=== PATIENT | male | born 1995 | race Caucasian/White ===

== ENCOUNTER → 2020-02-28 17:07 | Outpatient (CLI) | payer SELFPAY ==
[2020-02-28 17:46] LABS: Basophils # 0.1 K/mm3 (0-0.2); Basophils % 0.7 % (0.1-2.0); Eosinophils # 0.4 K/mm3 (0.0-0.4); Eosinophils % 4.5 % (0.1-12.0); Hematocrit 49.5 % (42.0-52.0); Hemoglobin 16.3 g/dL (14.1-18.0); Lymphocytes # 2.8 K/mm3 (0.7-4.5); Mean Corpuscular HGB Conc 32.9 g/dL (31.8-35.4); Mean Corpuscular Hemoglobin 32.2 pg (27.0-31.2); Mean Corpuscular Volume 97.8 fl (80-94); Mean Platelet Volume 7.8 fl (7.4-10.4); Monocytes # 0.5 K/mm3 (0.1-1.0); Monocytes % 5.7 % (1.7-9.3); Neutrophils # 4.6 K/mm3 (1.8-7.8); Platelet Count 256 K/mm3 (142-424); Red Blood Count 5.06 M/mm3 (4.60-6.20); Red Cell Distribution Width 13.2 % (11.5-17.5); White Blood Count 8.3 K/mm3 (4.8-10.8)
[2020-02-28 17:56] LABS: Alanine Aminotransferase 25 U/L (12-78); Albumin Level 4.5 g/dl (3.5-5.0); Albumin/Globulin Ratio 1.5 (1.1-1.8); Alkaline Phosphatase 72 U/L (38-126); Aspartate Amino Transferase 32 U/L (17-59); Bilirubin,Total 0.5 mg/dl (0.2-1.3); Blood Urea Nitrogen 17 mg/dl (9-20); Calcium 9.8 mg/dl (8.4-10.2); Carbon Dioxide 27 mmol/L (22.0-30.0); Chloride 102 mmol/L (98-107); Cholesterol 189 mg/dl (140-200); Estimated Glomerular Filt Rate 75 ml/min (>60); GFR (African American) 91 ML/MIN (>60); Globulin 3.1 g/dL (1.3-3.2); Glucose 92 mg/dl (74-100); HDL Cholesterol 38 mg/dl (40-60); Sodium 138 mmol/L (136-145); Total Protein,Serum 7.6 g/dl (6.3-8.2); Triglycerides 298 mg/dl (30-150); VLDL Cholesterol 60 mg/dL (0-40)
[2020-02-28 18:06] LABS: Direct LDL Cholesterol 111.24 mg/dL (100-129)
[2020-02-28 18:12] LABS: 25-OH Vitamin D, Total 26.8 ng/mL (30-100)
[2020-02-28 18:14] LABS: T4 (Thyroxine) 5.7 ug/dl (5.53-11.0)
[2020-02-28 18:27] LABS: Thyroid Stimulating Hormone 1.39 uIU/mL (0.465-4.68)
[2020-02-28 18:49] LABS: Hemoglobin A1C 5.4 % (4.0-6.0)
== END ==
PROVIDERS: Visit Provider Nurse Practitioner Family
DX: R42 Dizziness and giddiness (principal); R53.1 Weakness; R53.83 Other fatigue; E11.9 Type 2 diabetes mellitus without complications; E55.9 Vitamin D deficiency, unspecified
CPT/HCPCS: 80053; 80061; 82306; 83036; 84436; 84443; 85025

== ENCOUNTER 2022-10-18 19:26 | Emergency (ER) | payer SELFPAY ==
[2022-10-18 19:28] VITALS: BP 144/86; PULSE 102; RESP 33; TEMP 36.8; O2SAT 96; BMI 40.3
[2022-10-18 19:30] VITALS: BMI 45.1
--- NOTE | 2022-10-18 19:31 | ECG_ITS ---
APPROVED REPORT Exam: Resting ECG HR:96 bpm ECG Measurements Heart Rate 96 AXES KS 132 P 32 QRSd 102 QRS 21 QT 326 T 52 QTc 379 Conclusion SINUS RHYTHM NORMAL ECG UNCONFIRMED REPORT Electronically signed by : Sal Roldan MD 10/19/2022 13:59:50
--- NOTE | 2022-10-18 19:31 | XR_ITS ---
PROCEDURE INFORMATION: Exam: XR Chest Exam date and time: 10/18/2022 7:33 PM Age: 27 years old Clinical indication: Pain; Chest pressure; Additional info: Chest pain TECHNIQUE: Imaging protocol: Radiologic exam of the chest. Views: 1 view. COMPARISON: No relevant prior studies available. FINDINGS: Lungs: Unremarkable. No consolidation. Pleural spaces: Unremarkable. No pleural effusion. No pneumothorax. Heart/Mediastinum: Unremarkable. No cardiomegaly. Bones/joints: Unremarkable. IMPRESSION: No acute findings.
[2022-10-18 19:45] LABS: Basophils % 0.1 % (0.1-2.0); Eosinophils # 0.3 K/mm3 (0.0-0.4); Hematocrit 50.5 % (42.0-52.0); Lymphocytes # 1.3 K/mm3 (0.7-4.5); Mean Corpuscular HGB Conc 31.7 g/dL (31.8-35.4); Mean Corpuscular Hemoglobin 30.5 pg (27.0-31.2); Mean Corpuscular Volume 96.3 fl (80-94); Mean Platelet Volume 7.3 fl (7.4-10.4); Monocytes # 0.7 K/mm3 (0.1-1.0); Monocytes % 5.2 % (1.7-9.3); Neutrophils # 10.4 K/mm3 (1.8-7.8); Neutrophils % 82.7 % (37.0-80.0); Platelet Count 260 K/mm3 (142-424); Red Blood Count 5.25 M/mm3 (4.60-6.20); White Blood Count 12.6 K/mm3 (4.8-10.8)
[2022-10-18 19:49] LABS: Anion Gap 14.3 mEq/L (5-15); Blood Urea Nitrogen 22 mg/dl (9-20); Calcium 8.5 mg/dl (8.4-10.2); Carbon Dioxide 22 mmol/L (22.0-30.0); Chloride 107 mmol/L (98-107); Creatinine Clearance Estimated 102 mL/min (50-200); Estimated Glomerular Filt Rate 91 ml/min (>60); GFR (African American) 110 ML/MIN (>60); Glucose 113 mg/dl (74-100); Potassium 4.3 mmoL/L (3.5-5.1); Sodium 139 mmol/L (136-145)
--- NOTE | 2022-10-18 19:52 | HMH.EDGENADL ---
Discharge Plan Disposition Patient Disposition: Home, Self-Care Condition: Good Prescriptions Prescriptions: No Action No Known Home Medications Referrals Follow up/Referrals: Provider,MD Ashley [Primary Care Provider] - See instructions Activity Restrictions/Add. Instructions Additional Instructions/Restrictions: Please follow up with Dr. Villela, return to the ER for any worsening symptoms. Clinical Impressions Clinical Impression: Acute dehydration Instructions Patient Instructions: DI for Dehydration -- Adult Discharge ED Provider: Raad Vila Adult HPI General Chief complaint: Chest Pain Stated complaint: Chest Pain Time Seen by Provider: 10/18/22 19:52 Mode of Arrival: Ambulatory Source of Information: Patient Limitations: No Limitations Description of Symptoms (Recalled from ER Triage Doc. by RN): pt c/o chest pain that radiates from the R to the L, N/V, SOA, dizziness, and weakness ongoing since 1500. pt states he has had 600mg ibuprofen and one baby aspirin about an hour ago. History of Present Illness HPI narrative: Patient presents for evaluation of generalized weakness, diffuse chest pain, previous therapies include ibuprofen, pain is nonradiating, nonexertional, nonpleuritic, nonpositional, nonreproducible, has not had similar symptoms before, no palpitations. Reports history of working outside for the course of today and has had small amount of water intake. No shortness of breath. No pain elsewhere, no injury. No cardiac history, no chronic medical issues. Related Data Home Medications Medication Instructions Recorded Confirmed No Known Home Medications 10/18/22 10/18/22 Allergies Allergy/AdvReac Type Severity Reaction Status Date / Time No Known Allergies Allergy Verified 10/18/22 19:37 [facility] Disclaimer: The information contained in this section may have been updated after the patient was seen, as this information can be updated by other users. Social History Smoking Status: Current every day smoker tobacco type: cigars alcohol intake: never substance use type: denies use current occupational status: employed Travel in the last 8 weeks: None household members: family housing: house ROS Obtained: Yes Systems reviewed as appropriate & no additional complaints except as documented Physical Exam General General appearance: alert and in no apparent distress Head Head exam: atraumatic and normocephalic Eye Eye exam: Present normal appearance Neck Neck exam: Present normal inspection Chest Chest inspection: Present normal inspection and symmetric chest wall rise Respiratory Respiratory exam: Present normal lung sounds bilaterally; Absent respiratory distress Cardiovascular Cardiovascular exam: Present regular rate and normal rhythm Abdominal Exam Abdominal exam: Present soft Neurological Exam Neurological exam: Present alert and oriented X3 Psychiatric Psychiatric exam: Present normal affect and normal mood Skin Skin exam: Present warm, dry and other (Dry mucous membranes) Medical Decision Making Medical Records Medical records reviewed: Yes I reviewed the patient's medical records. Suresh Inquiry Pt receiving controlled substance: No Vital Signs: 10/18/22 19:28 10/18/22 22:05 Temperature 98.3 F 98.4 F Temperature Source Oral Pulse Rate 83 Pulse Rate [Left] 102 H Respiratory Rate 33 H 24 Blood Pressure 145/70 H Blood Pressure [Right Arm] 144/86 H Blood Pressure Mean [Right Arm] 105 Blood Pressure Source [Right Arm] Automatic Cuff Blood Pressure Position [Right Arm] Sitting 02 Sat by Pulse Oximetry 96 Lab Data Lab Results 10/18/22 19:30: WBC 12.6 H, RBC 5.25, Hgb 16.0, Hct 50.5, MCV 96.3 H, MCH 30.5, MCHC 31.7 L, RDW 13.0, Plt Count 260, MPV 7.3 L, Neut % (Auto) 82.7 H, Lymph % (Auto) 10.0, Bartholomew % (Auto) 5.2, Eos % (Auto) 2.0, Baso % (Auto)
[2022-10-18 20:00] LABS: Creatine Kinase 115 U/L (55-170)
[2022-10-18 20:07] LABS: Troponin I < 0.01 ng/ml (0.00-0.034)
--- NOTE | 2022-10-18 20:56 | PC.NURSE ---
patient given ice water, OK'd by ED doctor
[2022-10-18 22:05] VITALS: BP 145/70; PULSE 83; RESP 24; TEMP 36.9
== END 2022-10-18 22:22 | disposition home or self-care (01) ==
PROVIDERS: Emergency Provider Emergency Medicine
DX: R07.9 Chest pain, unspecified (principal); E86.0 Dehydration; R11.2 Nausea with vomiting, unspecified; R06.02 Shortness of breath; R42 Dizziness and giddiness; F17.290 Nicotine dependence, other tobacco product, uncomplicated
CPT/HCPCS: 71045; 80048; 82550; 84484; 85025; 93005; 93041; 96360; 96361; 99285

== ENCOUNTER 2023-04-26 08:21 | Outpatient (CLI) | payer SELFPAY ==
[2023-04-26] VITALS (11 sets, daily range): BP systolic 86–130; BP diastolic 44–77; PULSE 64–90; RESP 18; TEMP 36.8; O2SAT 95–100; BMI 41.9
--- NOTE | 2023-04-26 08:32 | CT_ITS ---
APPROVED REPORT Bilingual Teacher Aide: CLINICAL INDICATION Chest Pain TECHNIQUE Image Acquisition: A 128 slice MDCT scanner (MiniMonosa View) was used for data acquisition. A noncontrast coronary calcium scan was performed. A CT attenuation threshold of 130 Hounsfield units (HU) was used for the detection of calcium in contiguous voxels of 1 sq mm in area to be counted as individual lesions. Bolus tracking in the ascending aorta with a threshold of 180 HU was performed. Immediately afterwards, ECG synchronized cardiac CT was then performed from the cardiac base to apex using retrospective gating with ECG tube current modulation. A total of 85 mL of Isovue 370 mg/mL contrast medium was administered at 5 mL/sec followed by a saline flush using a biphasic injection protocol. A tube voltage of 120 KVp was used. The patient received the following medications prior to the cardiac CT. 150 mg of oral metoprolol 15 mg of intravenous metoprolol 15 mg of oral ivabradine 0.8 mg of sublingual nitroglycerin The average heart rate at the time of acquisition was 69 bpm and regular. Image Reconstruction Transaxial images were reconstructed at 0.67 mm slide thickness. Data was reviewed interactively on an advanced workstation capable of 2 and 3-dimensional displays in all conventional reconstruction formats, including multiplanar reformations, maximum intensity projections, curved multiplanar reformations, and volume rendered reconstructions. When applicable, selected routine images describing the relevant coronary anatomy and pathology were saved and sent to PACS. Complications None Technical Quality Overall image quality was suboptimal due to significant motion and elevated HR. Coronary artery opacification was adequate. Total DLP (Dose-Length Product) is 1199.1 mGy-cm. The reported value represents the total of one or more individual components during the CT acquisition of this date and at this time, and as such, the same value may appear in more than one CT report depending on the interpreting/reporting physicians. COMPARISON None FINDINGS CT Coronary Calcium Scoring LMA (Left Main Artery) = 0 LAD (Left Anterior Descending) = 0 LCX (Left Coronary Circumflex) = 0 RCA (Right Coronary Artery) = 0 Total Calcium Score = 0 using the AJ-130 method. The interpretation of the calcium heart score is based on the following continuum*: 0 = no calcified plaque detected (risk of coronary artery disease is very low ??? less than 5%) 1-10 = calcium detected in extremely minimal levels (risk of coronary diseases is still low ??? less than 10%) 11-100 = mild levels of plaque detected with certainty (mild or minimal narrowing of heart arteries is likely) 101-400 = definite,at least moderate levels of plaque detected (relatively high risk of a heart attack within 3-5 years) >401-999 = extensive levels of plaque detected (high risk of heart attack, high levels of vascular disease are present, high likelihood of at least one significant coronary narrowing) *The calcium heart score quantifies the burden of coronary calcification/plaque in the coronary arteries. The calcium heart score is not able to evaluate the presence or burden of non-calcified (i.e. soft) plaque. There is no identifiable calcification in the aortic valve, mitral annulus or mitral valve, pericardium, or myocardium. Coronary CT Angiography The coronary arterial system is right dominant. Quantitative Stenosis Grading: Left Main (LM): The left main originates normally from the left sinus of Valsalva. The LM bifurcates into the left anterior descending artery and left circumflex artery. The LM is patent with no evidence of atherosclerosis. Left Anterior Descending (LAD) and Diagonal Branches: The LAD gives off 2 diagonal branch(es). The LAD and its branches are patent with no evidence of atherosclerosis. There is mid LAD-myocardial bridge present, measuring approximately 7 mm in length and 1 mm in depth. Left Circumflex (LCX) and Obtuse Marginals (OM): The LCX gives off 1 Obtuse Marginal (OM) branch(es). The LCX and its branches are patent with no evidence of atherosclerosis. Right Coronary Artery (RCA): The RCA originates normally from the right sinus of Valsalva. The RCA gives off a posterior descending artery (PDA) and posterolateral (PL) branches. The RCA and its branches are patent with no evidence of atherosclerosis. Non-Coronary Cardiac Findings: Analysis of the left ventricular (LV) structure and function was performed after 3-D reconstruction of the LV from axial images, with user-corrected automatic contouring for assessment of LV volumes and user-defined reconstruction from oblique planes for measurement of 3-D cardiac structure and function. -The left ventricle systolic function is normal (LVEF 55%) -There is no left atrial appendage filling defect. Two right pulmonary veins and two left pulmonary veins drain normally into the left atrium. -No pericardial thickening or calcification. -Central and branch pulmonary arteries in the akmrd-sk-gspv are unremarkable. -Thoracic aorta within the visualized thoracic aortic-branches in the dgohc-vo-fsel is unremarkable. Extracardiac Structures No significant extra-cardiac findings. Note, however, that this study is focused on the cardiac findings. IMPRESSION -Absence of coronary calcification with an Agatston score = 0 using the AJ-130 method. -No evidence of significant flow-limiting atherosclerosis of the coronary arteries. 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 -CAD-RADS 0. Management recommendations per ACC/AHA guidelines*, as clinically appropriate. *Recommendations: CAD RADS 0: Reassurance. Consider non-atherosclerotic causes of chest pain. CAD RADS 1: Consider non-atherosclerotic causes of chest pain. Consider preventive therapy and risk factor modification. CAD RADS 2: Consider non-atherosclerotic causes of chest pain. Consider preventive therapy and risk factor modification, particularly for patients with nonobstructive plaque in multiple segments. CAD RADS 3: Consider further functional testing. Consider symptom-guided anti-ischemic and preventive pharmacotherapy as well as risk factor modification per published guideline statements. CAD RADS 4A: Consider further functional testing or invasive coronary angiography with revascularization per published guideline statements. Consider symptom-guided anti-ischemic and preventive pharmacotherapy as well as risk factor modification per published guideline statements. CAD RADS 4B: Invasive coronary angiography recommended with revascularization per published guideline statements. Consider symptom-guided anti-ischemic and preventive pharmacotherapy as well as risk factor modification per published guideline statements. CAD RADS 5: Consider invasive angiography and/or viability assessment with revascularization per published guideline statements. Consider symptom-guided anti-ischemic and preventive pharmacotherapy as well as risk factor modification per published guideline statements. CRITICAL RESULT None COMMUNICATION Per this written report The coronary and cardiac findings of this CCTA were reviewed, reported, and signed by Joe Holland MD (Disc Ruler Operator) Conclusion Electronically signed by : Leilani Holland MD 04/27/2023 12:17:51
[2023-04-26] MEDS: IVABRADINE HCL 7.5MG TABLET *IVABRADINE+METOPROLOL REGIMINE 15 MG PO (08:50)
[2023-04-26] MEDS: METOPROLOL TARTRATE 50MG TABLET *IVABRADINE+METOPROLOL REGIMINE 75 MG PO ×2 (08:50→09:38)
[2023-04-26 09:02] LABS: Chloride 106 mmol/L (98-107); Sodium 137 mmol/L (136-145)
[2023-04-26 09:05] LABS: Blood Urea Nitrogen 10 mg/dl (9-20); Calcium 9.2 mg/dl (8.4-10.2); Carbon Dioxide 28 mmol/L (22.0-30.0); Creatinine Clearance Estimated 101 mL/min (50-200); Estimated Glomerular Filt Rate 90 ml/min (>60); GFR (African American) 109 ML/MIN (>60); Glucose 108 mg/dl (74-100)
[2023-04-26] MEDS: METOPROLOL TARTRATE 5MG/5ML VIAL *IVABRADINE+METOPROLOL REGIMINE 5 MG IV ×3 (10:35→10:55)
[2023-04-26] MEDS: NITROGLYCERIN 0.4MG SL TABLET 0.800000000000000044 MG SL (10:40)
[2023-04-26] MEDS: 0.9 % SODIUM CHLORIDE 50 ML VIAL 40 ML IV (11:47)
[2023-04-26] MEDS: SODIUM CHLORIDE 0.9% 10ML SYR (RAD ONLY) 10 ML IV (11:47)
[2023-04-26] MEDS: IOPAMIDOL-370 (76%);100ML BOTTLE 85 ML IV (11:47)
== END 2023-04-26 11:50 | disposition home or self-care (01) ==
PROVIDERS: PCP Family Medicine; Visit Provider Internal Medicine
DX: R06.00 Dyspnea, unspecified (principal); R94.31 Abnormal electrocardiogram [ECG] [EKG]; Z72.0 Tobacco use
CPT/HCPCS: 75571; 75574; 80048; 93225; Q9967

== ENCOUNTER 2023-07-08 13:34 | Outpatient (CLI) | payer SELFPAY | END 2023-07-08 23:59 | disposition home or self-care (01) | LOC: RT 13:35 | PROVIDERS: PCP Family Medicine; Visit Provider Family Medicine | DX: G47.33 Obstructive sleep apnea (adult) (pediatric) (principal); G47.36 Sleep related hypoventilation in conditions classified elsewhere | CPT/HCPCS: G0399 ==

== ENCOUNTER 2024-01-18 10:15 | Outpatient (CLI) | payer SELFPAY ==
--- NOTE | 2024-01-18 10:20 | XR_ITS ---
FINAL REPORT CLINICAL HISTORY: PAIN..stepped on kids shoe yesterday and twisted ankle COMPARISON: None FINDINGS: RIGHT ANKLE Four views of the right ankle were obtained. There is no acute fracture or dislocation. The mortise is intact. Visualized joint spaces are normally aligned. Soft tissues are unremarkable. IMPRESSION: No acute bony abnormality. Reviewed, Interpreted and Dictated by Marcelo Mcadams III, MD Transcribed by Kisha Krishnan Authenticated and [facility]
== END 2024-01-18 23:59 | disposition home or self-care (01) ==
LOC: RAD 10:17
PROVIDERS: PCP Family Medicine; Visit Provider Family Medicine
DX: M25.571 Pain in right ankle and joints of right foot (principal)
CPT/HCPCS: 73610

== ENCOUNTER 2024-10-27 14:14 | Outpatient (CLI) | payer SELFPAY ==
--- OUTSIDE RECORDS SUMMARY | 2024-08-14 13:30 | XMS_ITS ---
Author Organization [facility] Address [address] [facility] [address] [place] [phone] Care Team Providers Care Environmental Compliance Manager Name Role Phone Buzz Villela Unavailable [phone] Allergies No Known Allergies REASON FOR VISIT 1 week f/u Social History Tobacco Use: Social History Observation Description Date Details (start date - stop date) Current Smoker NA - NA CURRENT TOBACCO USE: Question Answer Notes Are you a: current smoker Cigar Encounters Encounter Location Date Provider Diagnosis [facility] [address] [place] [phone] 08/14/2024 Buzz Villela Open wound of left foot, subsequent encounter S91.302D Assessments Encounter Date Diagnosis (ICD Code) Assessment Notes Treatment Notes Treatment Clinical Notes Section Notes 08/14/2024 Open wound of left foot, subsequent encounter (ICD-10 - S91.302D) Wound edges debrided with a curette today Plan Of Treatment Treatment Notes Assessment Notes Open wound of left foot, sub sequent encounter Wound edges debrided with a curette toda y Next Appt Details Follow Up: 1 Week, Reason: Progress Notes * JAQUELIN LEESDOB:1995 (29 yo M)Acc No.[id number]:08/14/2024 Patient: MATTHEW DOZIER Provider: Lakeisha Villela M.D. :1995 A ge:29 Y S ex:Male Date:08/14/2024 Address:[facility] [id number] Subjective: * Chief Complaints: * 1 . 1 week f/u. * HPI: D ermatology: 29 year old male presents with c/o Wound o n left foot, it is improving. * ROS: C ARDIOLOGY: no D izziness. n o C hest pain. G ASTROENTEROLOGY: no N ausea. n o V omiting. U ROLOGY: no D ifficulty urinating. n o B lood in urine. * Medical History: H ypertension, Hyperlipidemia. * Surgical History: L T Foot 05/2024. * Hospitalization/Major Diagno stic Procedure: D enies Past Hospitalization. * Family History: N o Family History documented.. * Social History: C URRENT TOBACCO USE: Yes A re you a: c urrent smoker Cigar. * Allergies: N .K.D.A. Objective: * Vitals: * Examination: G eneral Examination: General Appearance: N AD. S kin: j ust under 1 cm wide full thickness skin wound on the dorsum of the left foot at the previous surgery site, no edema or erythema today. Assessment: * Assessment: 1. O pen wound of left foot, subsequent encounter - S91.302D (Primary) Plan: * Treatment: * Follow Up: 1 Week * Images: Billing Information: * Visit Code: 97764 Office Visit, Est Pt., Level 2. * Procedure Codes: * Electronic signature of Zuleima Villela MD on 10/27/2024 at 02:16 PM EDT Sign off status: Pending * Provider: Lakeisha Villela M.D. Date: 0 08/14/2024 Generated for Zhen jc/Navi/Amadaitting on: 0 10/27/2024 02:16 PM EDT History and Physical Notes * HPI (History of Present Illness) Category Sub-Category Detail Notes Category Not es Dermatology Wound on left foot, it is improvin g Examination Category Sub-Category Detail Notes Category Not es General Examination General Appearance: NAD Skin: just under 1 cm wide full thickness skin wound on the dorsum of the left foot at the previous surgery site, no edema or erythema today
--- OUTSIDE RECORDS SUMMARY | 2024-08-21 13:30 | XMS_ITS ---
Author Organization [facility] Address [address] [facility] [address] [place] [phone] Care Team Providers Care Senior Sales Assistant Name Role Phone Buzz Villela Unavailable [phone] Allergies No Known Allergies REASON FOR VISIT 1 week Medications Medication SIG (Take, Route, Frequency, Duration) Notes Start Date End Date Status Cephalexin 500 MG 1 capsule Orally twi ce a day; Duration: 10 days 08/07/2024 Active Ezetimibe 10 MG 1 tablet Orally Once a day; Duration: 90 days Active Nebivolol HCl 5 MG 1 tablet Orally Once a day; Duration: 90 days Active CPAP machine and supplies - as directed as directed 08/2107/19/2023 Acti ve Social History Tobacco Use: Social History Observation Description Date Details (start date - stop date) Current Smoker NA - NA CURRENT TOBACCO USE: Question Answer Notes Are you a: current smoker Cigar Vital Signs Blood pressure systolic 120 mm Hg 08/22/19 25 Blood pressure diastolic 80 mm Hg 025 Heart Rate 90 /min 08/21/2024 Height 66 in 08/21/2024 Weight 247 lbs 08/21/2024 BMI 39.86 kg/m2 08/21/2024 Encounters Encounter Location Date Provider Diagnosis [facility] [facility] [place] [facility] [address] [place] [phone] 08/21/2024 Buzzflory Villela Open wound of left foot, subsequent encounter S91.302D Assessments Encounter Date Diagnosis (ICD Code) Assessment Notes Treatment Notes Treatment Clinical Notes Section Notes 08/21/2024 Open wound of left foot, subsequent encounter (ICD-10 - S91.302D) Wound cleaned and edge debrided with a skin curette Plan Of Treatment Treatment Notes Assessment Notes Open wound of left foot, sub sequent encounter Wound cleaned and edge debrided with a skin curette Next Appt Details Follow Up: via phone to repo rt progress, Reason: Progress Notes * JAQUELIN LEESDOB:1995 (29 yo M)Acc No.[id number]:08/21/2024 Progress Notes Patient: MATTHEW DOZIER Provider: Lakeisha Villela M.D. :1995 A ge:29 Y S ex:Male Date:08/21/2024 Address:[address] [place] [address] [place], [id number] Subjective: * Chief Complaints: * 1 . 1 week. * HPI: D ermatology: 29 year old male presents with c/o Wound P t here to f/u on lt foot wound, pt states wound is healing . * ROS: C ARDIOLOGY: no D izziness. [...] you a: c urrent smoker Cigar. * Medications: T aking CPAP machine and supplies - - as directed as directed , Notes to Pharmacist: 08/21, Taking Nebivolol HCl 5 MG Tablet 1 tablet Orally Once a day , Taking Ezetimibe 10 MG Tablet 1 tablet Orally Once a day , Taking Cephalexin 500 MG Capsule 1 capsule Orally twice a day , Medication List reviewed and reconciled with the patient * Allergies: N .K.D.A. Objective: * Vitals: W t: 247, Temp: 98.0, BP: 120/80, HR: 90, Nurse: dawit, Ht: 66, BMI:39.86. * Examination: G eneral Examination: General Appearance: N AD. S kin: 7 mm wide full thickness skin wound on the dorsum of the left foot at the previous surgery site, no edema or erythema today. Assessment: * Assessment: 1. O pen wound of left foot, subsequent encounter - S91.302D (Primary) Plan: * Treatment: * Follow Up: v ia phone to report progress * Images: Billing Information: * Visit Code: 46357 Office Visit, Est Pt., Level 2. * Procedure Codes: * Electronic signature of Zuleima Villela MD on 10/27/2024 at 02:15 PM EDT Sign off status: Pending * Provider: Lakeisha Villela M.D. Date: 0 08/21/2024 Generated for Zhen jc/Navi/Anastacia on: 0 10/27/2024 02:15 PM EDT History and Physical Notes * HPI (History of Present Illness) Category Sub-Category Detail Notes Category Not es Dermatology Wound Pt here to f/u o n lt foot wound, pt states wound is healing Examination Category Sub-Category Detail Notes Category Not es General Examination General Appearance: NAD Skin: 7 mm wide full thick ness skin wound on the dorsum of the left foot at the previous surgery site, no edema or erythema today
--- OUTSIDE RECORDS SUMMARY | 2024-09-29 07:40 | XMS_ITS ---
Author Organization [facility] Address [address] [facility] 36 [facility] [address] [place] [phone] Care Team Providers Care Cat Dog Or Other Pet Groomer Name Role Phone Buzz Villela Unavailable [phone] Results Component Value Reference Range Notes MRI : Ankle, left, without c ontrast Reviewed date:10/12/2024 12:12:42 PM Interpretation:Abnormal Performing Lab: Notes/Report: Abnormal REASON FOR VISIT Message Encounters Encounter Location Date Provider Diagnosis [facility] [address] [place] [phone] 09/29/2024 Buzz Villela Acute left ankle trini n M25.572 and Post-op pain G89.18 Assessments Encounter Date Diagnosis (ICD Code) Assessment Notes Treatment Notes Treatment Clinical Notes Section Notes 09/29/2024 Acute left ankle pain (ICD-10 - M25.572) 09/29/2024 Post-op pain (ICD-10 - G89.18) Plan Of Treatment No Information Progress Notes * JAQUELIN LEESDOB:1995 (29 yo M)Acc No.[id number]:09/29/2024 Patient: MATTHEW DOZIER :1995 A ge:29 Y S ex:Male Address:[address] [place] [address] [place], [place], [address] Subjective: * Chief Complaints: * M essage * Medical History: * Surgical History: * Hospitalization/Major Diagno stic Procedure: * Medications: Objective: * Vitals: * Physical Examination: Assessment: * Assessment: 1. A cute left ankle pain - M25.572 (Primary) 2 . P ost-op pain - G89.18? Plan: * Treatment: 2.?Post-op pain?Imaging: MRI : Ankle, left, without contrast* Proscan any day but 10/05 or 10/06Ela Mills 09/29/2024 11:45:29 AM EDT > patient is SELF PAY * Procedure Codes: * true * Date: Generated for Zhen jc/Navi/Anastacia on: 0 10/27/2024 02:16 PM EDT
--- OUTSIDE RECORDS SUMMARY | 2024-10-27 14:16 | XMS_ITS | Clinical Summary ---
Author Organization Healthcare Address [address] [place] [address] Care Team Providers Care Chief Pilot Name Role Phone Unavailable Primary Care Provider Unavailabl e Allergies No known active allergies Social History Tobacco Use Types Packs/Day Years Used Date Smoking Tobacco: Never Assessed Sex and Gender Information Value Date Recorded Sex Assigned at Not on file Legal Sex Male 8:26 PM EST Gender Identity Not on file Sexual Orientation Not on file Last Filed Vital Signs Vital Sign Reading Time Taken Comments Blood Pressure 142/82 04/10/2023 1:54 AM EST Pulse 107 04/10/2023 1:54 AM EST Temperature 37.1 C (98.8 F) 04/10/2023 1:54 AM EST Respiratory Rate 17 04/09/2023 8:30 PM EST Oxygen Saturation 96% 04/10/2023 1:54 AM EST Inhaled Oxygen Concentration - - Weight - - Height - - Body Mass Index - - Plan of Treatment Health Maintenance Due Date Last Done Comments [facility]-Depression Screening 1997 [facility]-/Child/Adol SDOH Screenings 1997 [facility]-Varicella Vaccines (1 of 2 - 13+ 2-dose series) 2010 [facility]- SDOH Screenings 2015 [facility]-Adult SDOH Screenings 2015 [facility]-DTaP,Tdap,and Td Vaccine s (1 - Tdap) 02/25/2016 [facility]-Hepatitis B Vaccines (1 of 3 - 19+ 3-dose series) 02/25/2016 [id number] Vaccine (1 - 20 24-25 season) 2023 HPV Vaccines (1 - 3-dose SCD M series) 02/25/2024 [facility]-Influenza Vaccine (#1) 2024 [facility]-Zoster Vaccines (1 of 2) 2047 [facility]-HIV Screening Completed 04/09/2023 [facility]-Hepatitis C Screening Completed 04/09/2023 [facility]-HIB Vaccines Aged Out No longer e ligible based on patient's age to complete this topic [facility]-Hepatitis A Vaccines Aged Out No longer eligible based on patient's age to complete this topic [facility]-IPV Vaccines Aged Out No longer e ligible based on patient's age to complete this topic [facility]-Pneumococcal Vaccine: Pediatrics (0 to 5 Years) and At-Risk Patients (6 to 49 Years) Aged Out No long er eligible based on patient's age to complete this topic [facility]-Rotavirus Vaccines Aged Out No lo nger eligible based on patient's age to complete this topic Procedures Procedure Name Priority Date/Time Associated Diagnosis Comments HEPATITIS C ANTIBODY - ED W/REFLEX TO HCV QUANT PCR STAT 04/09/2023 11:08 PM EST ED HIV 1/2 ANTIBODY/ANTIGEN SCREEN WITH REFLEX TO HIV I/II DIFFERENTIATION STAT 04/09/2023 11:08 PM EST from Last 3 Months or Most Recently Relevant to Health Maintenance Results * ED HIV 1/2 Antibody/Antigen Screen w/Reflex to HIV 1/2 Differentiation (04/09/2023 11:08 PM EST) HIV 1 & 2 Antibody/Antigen Screen Non Reactive Non Reactive 04/10/2023 12:16 AM EST [email or web address] Comment:Screening for HIV 1 & 2 antibodies, and P24 antigen is NONREACTIVE. No confirmatory testing is required. Blood Venous blood specimen / Unknown Venipuncture / Unknown 04/09/2023 11:08 PM EST 04/09/2023 11:20 PM EST us Janet Lind MD LAB BLOOD ORDERABLES F inal Result [facility] [address] [place] [id number] * Hepatitis C Antibody - ED (04/09/2023 11:08 PM EST) Hepatitis C Antibody Negative Negative 04/10/2023 12:00 AM EST [email or web address] Blood Venous blood specimen / Unknown Venipuncture / Unknown 04/09/2023 11:08 PM EST 04/09/2023 11:20 PM EST us Janet Lind MD LAB BLOOD ORDERABLES F inal [facility] [address] [place] [address] from Last 3 Months or Most Recently Relevant to Health Maintenance
--- OUTSIDE RECORDS SUMMARY | 2024-10-27 14:16 | XMS_ITS | Patient Health Record ---
Author Organization [facility] Address [address] [place] [id number] Care Team Providers Care Surgery Attendant Name Role Phone [place] Unavailable [phone] Allergies No Known Allergies Results Component Value Reference Range Notes MRI : Ankle, left, without c ontrast Reviewed date:10/12/2024 12:12:42 PM Interpretation:Abnormal Performing Lab: Notes/Report: Abnormal X ray : Ankle, right Reviewed date:01/19/2024 04:06:49 PM Interpretation:No fracture Performing Lab: Notes/Report: No fracture CBC Fingerstick (in house) Reviewed date:07/28/2024 04:17:30 PM Interpretation: Performing Lab: Notes/Report: wbc 7.2 3.5 - 10 lym 35.0 15 - 50 mid 6.3 2 - 15 gran 58.7 35 - 80 rbc 5.18 3.5 - 5.5 hgb 16.2 11.5 - 16.5 hct 49.1 35 - 55 mcv 94.8 75 - 100 mch 31.4 25 - 35 mchc 33.1 31 - 38 plat 225 100 - 400 Reason For Referral No Information Medications Medication SIG (Take, Route, Frequency, Duration) [...] Notes Are you a: current smoker Cigar Problems Problem Type SNOMED Code ICD Code Onset Dates Problem Status W/U Status Risk Notes Problem Essential hypertension (05210768) Essential hypertension (I10) Active confirmed Problem Morbid obesity (311366989) Morbid obesity (E66.01) Active confirmed Problem Obstructive sleep apnea (18776584) Obstructive sleep apnea (G47.33) Active confirmed Problem Pure hypercholesterolemia (582363829) Pure hypercholesterolemia (E78.00) Active confirmed Problem 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) Testosterone deficiency in male (E29.1) Active confirmed Problem MRI Scan Abnormal (724291889) Abnormal MRI (R93.89) Active confirmed Vital Signs Heart Rate 90 /min 08/21/2024 Blood pressure diastolic 80 mm Hg 08/21/2024 Height 66 in 08/21/2024 Blood pressure systolic 120 mm Hg 08/21/2024 Weight 247 lbs 08/21/2024 BMI 39.86 kg/m2 08/21/2024 Encounters Encounter Location Date Provider Diagnosis [facility] [address] [facility] [address] [place], [place] [id number] 01/18/2024 [place] Acute right ankle pa in M25.571 [facility] [address] [facility] [address] [place], [place] [id number] 06/14/2024 [place] Visit for suture rem oval Z48.02 [facility] [address] [facility] [address] [place], [place] [id number] 06/26/2024 [place] Open wound of left f oot, initial encounter S91.302A [facility] [address] [facility] [address] [place], [place] [id number] 07/28/2024 [place] Open wound of left f oot, subsequent encounter S91.302D [facility] [address] [place], [place] [id number] 08/07/2024 [place] Open wound of left f oot, subsequent encounter S91.302D [facility] [address] [facility] [address] [place], [place] [id number] 08/14/2024 [place] Open wound of left f oot, subsequent encounter S91.302D [facility] [address] [facility] [address] [place], [place] [id number] 08/21/2024 [place] Open wound of left f oot, subsequent encounter S91.302D [facility] [address] [place] [id number] 01/17/2024 [place] Essential hypertensi on I10 and Pure hypercholesterolemia E78.00 [facility] [address] [place] [id number] 09/29/2024 [place] Acute left ankle trini n M25.572 and Post-op pain G89.18 [facility] [address] [place] [id number] 10/12/2024 [place] Assessments Encounter Date Diagnosis (ICD Code) Assessment Notes Treatment Notes Treatment Clinical Notes Section Notes 01/17/2024 Essential hypertensi on (ICD-10 - I10) 01/18/2024 Acute right ankle pa in (ICD-10 - M25.571) Rest, ice, compression and elevation 06/14/2024 Visit for suture removal (ICD-10 - Z48.02) 06/26/2024 Open wound of left foot, initial encounter (ICD-10 - S91.302A) Topical MediHoney 07/28/2024 Open wound of left foot, subsequent encounter (ICD-10 - S91.302D) Skin curette used to remove ring of tissue at wound edge, new dressing placed over wound 08/07/2024 Open wound of left foot, subsequent encounter (ICD-10 - S91.302D) Hibiclens used to clean the skin around the wound. Skin curette used to debride wound edges, new dressing placed over wound 08/14/2024 Open wound of left foot, subsequent encounter (ICD-10 - S91.302D) Wound edges debrided with a curette today 08/21/2024 Open wound of left foot, subsequent encounter (ICD-10 - S91.302D) Wound cleaned and edge debrided with a skin curette 09/29/2024 Acute left ankle trini n (ICD-10 - M25.572) 09/29/2024 Post-op pain (ICD-10 - G89.18) 01/17/2024 Pure hypercholesterolemia (ICD-10 - E78.00) Plan Of Treatment Pending Test Test Name Order Date X ray : Foot, left 10/23/2024 Ultrasound: Left foot 10/23/2024 Medical (General) History Medical History History ICD Code Hypertension Hyperlipidemia Surgical History Surgery Date(Month/Year) LT Foot 05/2024
--- NOTE | 2024-10-27 14:20 | US_ITS ---
FINAL REPORT CLINICAL HISTORY: .R/O FOREIGN BODY FINDINGS: Limited imaging of the soft tissues of the anterolateral left ankle were obtained at the area of possible abnormality. There is no fluid collection. No discrete mass identified. No shadowing is seen to suggest foreign body. IMPRESSION: No ultrasound abnormality at the area of interest. Reviewed, Interpreted and Dictated by Lawanda Vicente MD Transcribed by Kisha Krishnan Authenticated and [facility]
--- NOTE | 2024-10-27 14:20 | XR_ITS ---
PROCEDURE INFORMATION: Exam: XR Left Foot Exam date and time: 10/27/2024 2:22 PM Age: 29 years old Clinical indication: Pain; Left; Prior surgery; Surgery date: 1-6 months; Surgery type: Broke foot and had two surgeries, PT was unsure what kind of surgery was performed but said one was done in May of 2024 and the other was a year and a half ago. ; Additional info: Abnormal mri TECHNIQUE: Imaging protocol: Radiologic exam of the left foot. Views: 3 or more views. COMPARISON: No relevant prior studies available. FINDINGS: Bones/joints: No acute fracture or dislocation. No significant loss of joint space. No orthopedic hardware. Soft tissues: No focal soft tissue swelling. No radiopaque foreign body. IMPRESSION: 1. No acute findings. 2. Regarding the clinical history, comparison to a prior exam would be helpful. An addendum will be issued if relevant prior imaging arrives.
== END 2024-10-27 23:59 | disposition home or self-care (01) ==
LOC: RAD 14:14
PROVIDERS: PCP Family Medicine; Visit Provider Family Medicine
DX: M79.672 Pain in left foot (principal); R93.89 Abnormal findings on diagnostic imaging of other specified body structures
CPT/HCPCS: 73630; 76882